=== PATIENT | female | born 1985 | race Two or more races ===

== ENCOUNTER 2024-10-18 11:29 | Outpatient (AMB) | payer MEDICAID, SELFPAY ==
[2024-10-18 11:47] VITALS: BP 120/75; PULSE 83; RESP 16; TEMP 36.4; O2SAT 97; BMI 28.6
--- NOTE | 2024-10-18 11:47 | AMB.OBINITIA ---
Vital Signs 10/18/24 11:47 Height 1.65 m Height Method Stated Weight 78.188 kg Weight Measurement Method Standing Scale BMI 28.6 BP 120/75 Blood Pressure Source Automatic Cuff Blood Pressure Location Left Upper Arm Position Sitting Respiration 16 Pulse 83 Pulse Source Monitor Temp 97.5 F Temp Source Oral Pulse Oximetry (%) 97 Oxygen Delivery Method Room Air Allergies/Home Meds Allergies & Medications Allergies No Known Allergies Allergy (Verified 10/18/24 11:48) Medication Reconciliation ondansetron 4 mg disintegrating tablet 4 mg PO Q8H PRN nausea and vomiting #14 tabs 03/30/24 [Rx Confirmed 10/18/24] Intake Visit Data Collection New Patient or Established: Established Patient (seen at [facility] within 3 years) Reason for Visit:: CARE Seen by Clinical Staff ONLY (RN/MA): No Sampler Pickup Required: No Do You Feel Safe at Home: Yes Authorities Contacted: N/A PCP or OBGYN visit in last 3 months: No Hx Now: Yes Are you currently on any form of Control: Yes Pain Present Currently: No Pain Scale Used: Blevins-Gonzalez/Numerical Pain scale:: 0 Smoking Status Smoking Status: Never smoker Questionnaires Covid-19 Vaccine Questionnaire Has patient been vacinated for Covid-19 Have you been vacinated for Covid-19: Yes PHQ-9 PHQ-2 Over the last 2 weeks, how often have you been bothered by any of the following problems? 1. Little interest or pleasure in doing things: not at all 2. Feeling down, depressed, or hopeless: not at all Total score: 0 PHQ-9 3. Trouble falling or staying asleep, or sleeping too much: Not at all 4. Feeling tired or having little energy: Not at all 5. Poor appetite or overeating: Not at all 6. Feeling bad about yourself - or that you are a failure or have let yourself or your family down: Not at all 7. Trouble concentrating on things, such as reading the newspaper or watching television: Not at all 8. Moving or speaking so slowly that other people could have noticed? - Or the opposite - being so fidgety or restless that you have been moving around a lot more than usual: not at all 9. Thoughts that you would be better off or of hurting yourself in some way: Not at all Total score: 0 Source: Developed by Drs. Brenden Davis, Della Lau, Alessio Barrett and colleagues, with an educational zenaida from [email or web address]. Depression screen completed yes Social History Living Situation History Marital Status: Lives With: Family Housing: Apartment Tobacco History Smoking Status: Never smoker Second Hand Smoke Exposure: No Alcohol History Alcohol Intake: Never Domestic Abuse History Do You Feel Safe at Home: Yes Past Medical History Past Medical History Have you ever been diagnosed with any of the following: Neurological Problems Parkinson's Disease: Yes Cardiology Problems Congestive Heart Failure: No Respiratory Problems Chronic Obstructive Pulmonary Disease (COPD): No Stomache/Intestinal Problems Hepatitis: No Colorectal Cancer: No Genital/Urinary Problems Renal Disease: No Reproductive Problems Breast Cancer: Yes Pelvic Inflammatory Disease: No Previous Pregnancies: Yes (X5 INCLUDING 1 SAB) Musculoskeletal Problems Bone Cancer: No Endocrine Problems Diabetes Mellitus Type 1: No Diabetes Mellitus Type 2: No Other Problems Hospitalization: No Down Syndrome: No Developmental Delay: No Shingles: No Falls: No Blood Transfusions: No Blood Transfusion Reaction: No Anesthesia Reactions: No Organ Transplant: No Chemotherapy: No Radiation Therapy: No Hyperbaric Therapy: No MRSA: No VRSA: No Vancomycin-Resistant Enterococci: No Human Immunodeficiency Virus (HIV): No Chicken Pox: No Measles: No Mumps: No Rubella (Faroese Measles): No Pertussis: No Clostridium Difficile: No Cervical Cancer: No Lung Cancer: No Ovarian Cancer: No History of Present Illness HPI Narrative 39-year-old 7 para 5 that comes to [facility] OB clinic for transfer of care. [email or web address] for [facility]. Patient's first visit was at 13 weeks. Patient has a history of irregular menses. Her last period was February 01, 2024. Based on first ultrasound at 13 weeks in office patient's due date is November 19, 2024. Denies chronic illness. Denies social habits. Denies surgeries. Patient wants a tubal ligation. History of hemorrhage with her last . Patient is O+, antibody screen negative, RPR nonreactive, rubella immune, hepatitis B negative, hep C negative, HIV negative, GC and Chlamydia were negative. Patient did not do her GTT. NIPT and screening tests are negative. Last visit with maternal- medicine was on October 17. Patient has a follow-up ultrasound October 24, 2024. Reports positive movement. Denies signs symptoms of labor. Denies leaking or bleeding at this time OB Initial Visit OB Flowsheet OB Flowsheet Initial Weight: Not Recorded Date <del>?</del> EGA Weight Edema CTX Effacement BP Fundal ht Pres Dilation Effacement Station Visit Note Alb Glu FHR Mov 10/18/24 <del>?</del> 36w 2d 78.188 kg absent absent 120/75 cephalic 7 para 5 comes for her first visit for OB I today. Patient transferred from [facility] with records. I will call for her ultrasound results from [facility]. Patient advised to get hemoglobin A1c today. GBS was done today. Reports good movement. Denies signs symptoms of labor. Patient is O+, antibody screen negative, RPR nonreactive, rubella immune, hepatitis B negative,, hepatitis C negative, HIV negative, GC and Chlamydia were negative. NIPT and carrier screens negative. rtc 1 week obc and schedule with OB for tubal consent. [facility] bid 7 para 5 comes for her first visit for OB I today. Patient transferred from [facility] with records. I will call for her ultrasound results from [facility]. Patient advised to get hemoglobin A1c today. GBS was done today. Reports good movement. Denies signs symptoms of labor. Patient is O+, antibody screen negative, RPR nonreactive, rubella immune, hepatitis B negative,, hepatitis C negative, HIV negative, GC and Chlamydia were negative. NIPT and carrier screens negative. rtc 1 week obc and schedule with OB for tubal consent. [facility] bid. review of [facility] sono for 10/03, EFW was overall 19%, AC: 8th%, [facility] recommends nst/bpp weekly and patient has doppler scheduled in 1 week. 145 active Menstrual History Menstrual reliability: definite Flow: normal Menstrual regularity: irregular Monthly: No Age at menarche: 16 On control pills at conception: No Associated symptoms (LMP): Reports fatigue OB History : 7 Para: 5 Hx # Pregnancies: 0 Hx Total # of Abortions (Spontaneous & Elective): 1 # of Living Children: 5 Delivery History 1st : Child's name: les date: 07/15/05 sex: male Gestational age at delivery (weeks): 42 Delivery type: vaginal weight (lbs): 3175.147 g Delivery complications: none History of depression before or after : No 2nd : Child's name: Samuel date: 09/28/07 sex: male Gestational age at delivery (weeks): 41 Delivery type: vaginal Delivery complications: none, 7-11 History of depression before or after : No 3rd : Child's name: jesi date: 11/01/10 sex: male Gestational age at delivery (weeks): 41 Delivery type: vaginal Delivery complications: 6-4, no problem History of depression before or after : No 4th : Child's name: selene date: 10/13/15 sex: male Gestational age at delivery (weeks): 41 Delivery complications: none. 7-12 History of depression before or after : No 5th : Child's name: candida date: 10/17/17 sex: female Gestational age at delivery (weeks): 41 Delivery complications: none, 8-14 History of depression before or after : No Infection History & Risk Evaluation History of STDs: none Patient or partner has history of Genital Herpes: No Genetic Screening & History Genetic Screening/Teratology Counseling - Includes patient, baby's father, or anyone in either family with: 1. Patient's age 35 years or older as of estimated date of delivery: Yes 2. Thalassemia (Scottish, Austrian, Mediterranean, or Background); MCV less than 80: No 3. Neural Tube Defect (Meningomyelocele, Spina Bifida, or Anencephaly): No 4. Congenital Heart Defect: No 5. Down Syndrome: No 6. Jamin-Sachs (Ashkenazi Zoroastrian, Cajun, Arabic [place]): No 7. Florina Disease (Ashkenazi Zoroastrian): No 8. Familial Dysautonomia (Ashkenazi Zoroastrian): No 9. Sickle Cell Disease or Trait (): No 10. Hemophilia or other blood disorders: No 11. Muscular Dystrophy: No 12. Cystic Fibrosis: No 13. [place]'s Chorea: No 14. Mental Retardation/Autism: No 15. Other inherited genetic or chromosomal disorder: No 16. Maternal Metabolic Disorder (EG,TYPE 1 Diabetes, PKU): No 17. Patient or baby's father had a child with defects not listed above: No 18. Recurrent loss or a stillbirth: No 19. Medications (including supplements, vitamins, herbs or otc drugs)/illicit/recreational drugs/alcohol since last menstrual period: No 20. Any other: No Infection History 1. Live with someone with TB or exposed to TB: No 2. Rash or viral illness since last menstrual period: No 3. Hepatitis B,C: No Other (see comments) Source: [employer] Review of Systems Review of Systems Systems Reviewed: All systems reviewed, normal except as documented Constitutional Constitutional: Reports fatigue Endocrine Endocrine: Reports fatigue Exam General Limitations: no limitations General Appearance: alert, in no apparent distress, comfortable, cooperative, healthy appearing, well developed and well groomed Head Head exam: atraumatic, normocephalic and normal inspection Chest Chest inspection: Present normal inspection and symmetric chest wall rise Resp Respiratory exam: Present normal lung sounds bilaterally Card Cardiovascular exam: Present regular rate, normal rhythm and normal heart sounds Abdominal Abdominal exam: Present soft (fh: 35, FHT 148) and normal bowel sounds Speculum exam: Present normal speculum exam Psych Psychiatric exam: Present normal affect and normal mood Assessment & Plan Diagnosis / Problem List (1) Elderly multigravida in third trimester: Status: Acute (2) Grand multipara in labor in third trimester: Status: Acute (3) Adolescent multigravida 16 years of age or older in third trimester: Status: Acute Plan schedule for A1c today. f/u with MFM 10/27, GBS today. discuss [facility] bid, labor precaution reviewed with patient. f/u with OB for BTL consult. RTC 1 week. call [facility] for sono results Additional Plan Follow Up: 1 Week (RTC 1 week OBC/BTL consult) Office Procedures OB Clinic LOC & Office Proc's Nursing/Assessment Patient Status: Established Patient OB Clinic Nursing Assessment: Medication Reconciliation, Update PMH in EMR and Vital Signs OB Clinic Coordination of Care: Complex Care and Chronic Disease 1-5, Consent,records obtained, informed consent, Education Simp Pt/Fam, Lab and Imaging orders and Staff clarify orders Special Needs: Heart tones Miscellaneous Interventions: Culture Specimen Collection Established Patient Charge Established Patient Point Assignment: 145 Established Patient Point Charge: EP Level 4 ([id number])
== END 2024-10-18 12:11 | disposition home or self-care (01) ==
LOC: HODSOBC 11:29
PROVIDERS: Supervising Provider Obstetrics & Gynecology; Visit Provider Advanced Practice Midwife
DX: O09.523 Supervision of elderly multigravida, third trimester (principal); Z3A.36 36 weeks gestation of pregnancy
CPT/HCPCS: 99214; G0463

== ENCOUNTER 2024-10-24 20:17 | Inpatient (IN) | payer MEDICAID, SELFPAY ==
[2024-10-24] VITALS (36 sets, daily range): BP systolic 107; BP diastolic 70; PULSE 70–94; RESP 18; TEMP 36.6; O2SAT 97–100; BMI 28.8
--- NOTE | 2024-10-24 21:06 | XR_ITS ---
Examination: age Limited Technique: Limited transabdominal sonographic images pelvis Exam date and time: October 24, 2024 at 9:55 PM Indications: Pelvic contractions today, unknown presentation. Findings: Viable intrauterine gestation cephalic presentation spine maternal right Cardiac motion 155 BPM Impression: Viable intrauterine gestation cephalic presentation
[2024-10-24] MEDS: RINGERS LACTATED 1000 ML 1,000 ML 100 ML IV (21:20)
[2024-10-24 22:35] LABS: Basophils % (Auto) 0 % (0-2.5); Eosinophils % (Auto) 0 % (0-10); Hematocrit 29.4 % (36.0-46.0); Hemoglobin 10.4 g/dL (12.0-16.0); Immature Granulocytes % (Auto) 1 % (0-0); Immature Granulocytes Auto 0.11 Thou/mm3 (0.00-0.00); Lymphocytes # (Auto) 1.9 Thou/mm3 (1.0-4.8); Lymphocytes % (Auto) 18 % (10-50); Mean Corpuscular HGB Conc 35.4 g/dl (31.0-37.0); Mean Corpuscular Hemoglobin 32.4 pg (25.0-35.0); Mean Corpuscular Volume 92 fL (80-100); Monocytes # (Auto) 0.6 Thou/mm3 (0.0-0.8); Monocytes % (Auto) 6 % (0-12); Neutrophils # (Auto) 7.6 Thou/mm3 (1.8-7.7); Neutrophils % (Auto) 74 % (37-80); Nucleated Red Blood Cell % 0 /100 WBC (0); Platelet Count 262 Thou/mm3 (140-440); Red Blood Count 3.21 Miln/mm3 (4.00-5.20); White Blood Count 10.3 Thou/mm3 (3.6-11.0)
[2024-10-24 23:45] LABS: Syphilis Nonreactive (Nonreactive)
[2024-10-24] MEDS: DINOPROSTONE 10 MG VAG.SUPP VAGINAL (23:47)
[2024-10-25] VITALS (141 sets, daily range): BP systolic 96–133; BP diastolic 54–85; PULSE 66–98; RESP 17–18; TEMP 36.6–37; O2SAT 94–100
[2024-10-25] MEDS: RINGERS LACTATED 1000 ML 1,000 ML 100 ML IV ×4 (01:19→19:26)
--- NOTE | 2024-10-25 08:59 | ESHP_ITS ---
Documentation for date of: 10/25/24 OB Labor/Induct. HPI History of Present Illness Chief complaint: induction, IUFR : 7 Para: 5 Term pregnancies: 5 pregnancies: 0 Living children: 5 History of Abortions: Spontaneous and Elective: 1 History of Vaginal deliveries: 5 History of sections: No History of : No Date of last menstrual period: 02/07/24 RAJIV: 11/13/24 Gestational Age (weeks): 37 Gestational Age (days): 1 Gestational age based on last menstrual period: 37 History of present illness: 39-year-old 7 para 5 admit to labor and delivery for induction of labor from her MFM appointment. Patient had been seen weekly MFM and Dopplers for growth restriction. The baby a week ago was measured in the 8th percentile. This week the baby is measuring in the 3rd percentile and oligohydramnios. The SHERRI was 3.5 so patient was a direct admit. Denies social habits. Denies surgery. Denies chronic illness. 1 hour GTT was normal. Patient is O+, antibody screen negative, RPR nonreactive, rubella immune, hepatitis B negative, hep C negative, GC and Chlamydia were negative. Patient had a negative AFP, negative NIPT and carrier screens were all negative. And GBS negative. History of Present Dating criteria: LMP confirmed by 1st trimester US Adequate Care: Yes Ultrasounds: normal 1st trimester US and normal mid trimester US Obstetrical complications: growth restriction Medical complications: none Review of Systems Review of Systems Systems Reviewed: All systems reviewed, normal except as documented Past Medical History Surgical History SURGICAL: Negative Section Meds Home Medications and Allergies Allergies Allergy/AdvReac Type Severity Reaction Status Date / Time No Known Allergies Allergy Verified 10/18/24 11:48 OB Exam Physical Exam Vital signs: Temp Pulse Resp BP Pulse Ox O2 Del Method 98.6 F 81 18 106/67 98 Room Air 10/25/24 07:02 10/25/24 08:14 10/25/24 07:06 10/25/24 08:14 10/24/24 23:35 10/25/24 00:00 Narrative: Alert and oriented. Normal heart rate and rhythm. Lungs clear no wheezes. Gravid abdomen. Gynecoid pelvis. Estimated weight 5-1/2 pounds. Vaginal examination was long closed posterior and firm. Vertex by ultrasound. heart rate category 1 with accelerations and moderate variability and occasional contractions Routine Cardiovascular Exam Cardiovascular: Present RRR Routine Abdominal Exam Abdominal: Present soft Detailed Labor and Delivery Exam Dilation (cm): closed Effacement (%): thick Cervix position: posterior station: -3 Consistency: medium Presentation: Vertex Cervical ripeness score: 2 Membranes: intact Baseline heart rate: 155 monitor accelerations: 15x15 monitor decelerations: None jail variability: Moderate (11-25) Contraction frequency (min): occ Tachysystole: No Contraction intensity: Mild OB Results Labs 10/24/24 21:00 Labs: Short CBC 10/24/24 Range/Units 21:00 WBC 10.3 (3.6-11.0) Thou/mm3 Hgb 10.4 L (12.0-16.0) g/dL Hct 29.4 L (36.0-46.0) % Plt Count 262 (140-440) Thou/mm3 OB Assessment & Plan Assessment and Plan (1) Intrauterine growth restriction (IUGR) affecting care of mother: Status: Acute Additional Plan Induction method: per misoprostol protocol Plan: induction, anticipate NVD and consult MD haywood
[2024-10-25] MEDS: MISOPROSTOL 50 mCg TABLET PO (15:44)
--- NOTE | 2024-10-25 16:41 | PD.LDPN ---
Documentation for date of: 10/25/24 OB Labor Progress Note Pain Control Comments: None Pelvic Exam Dilation (cm): closed Effacement (%): thick station: -3 Amniotic membrane status: Intact Contractions Contraction frequency: q 3 min Contraction intensity: Mild Status status: Category l Assessment and Plan Comments: IUP 37w1d FGR Cerivical ripening on going : Received Cervidil x 12 hours then Cytotec 50mcg orally Currently Category 1 Tracing Note: Patient experienced a prolonged decel lasting 5 minutes beginning at 15:56 due to tachysystole within 30 minutes of receiving her first dose of Cytotec orally. Intrauterine resuscitation measures were implemented. The tachysystole resolved and heart pattern improved and at 16:20 we currently have a Category 1 tracing without tachysystole. Recommend continuous monitoring for two hours after cytotec dosing.
--- NOTE | 2024-10-25 17:35 | PD.LDPN ---
Documentation for date of: 10/25/24 OB Labor Progress Note Pain Control Pain control: tolerating well Pelvic Exam Dilation (cm): 1 Effacement (%): 50 station: -2 Amniotic membrane status: Intact Contractions Monitor mode: External Contraction frequency: q 3 min Contraction duration: mild Contraction phase: Resting Contraction intensity: Mild Status status: Category l Assessment and Plan Assessment: induction ongoing Plan OB labor note: continuous present management (prolonged decel after 1st dose of cytotec, heart rate recovered, now accels with moderate variability) CNM Management MD Consulted (describe details below): Yes
[2024-10-25] MEDS: ONDANSETRON INJ 2 MG/ML INJ 2 ML 4 MG IV (19:26)
[2024-10-25] MEDS: OXYTOCIN in NS 30 units 30 UNIT/500 ML BAG IV (20:45)
[2024-10-26] VITALS (121 sets, daily range): BP systolic 102–129; BP diastolic 62–83; PULSE 63–92; RESP 17–18; TEMP 36.6–36.7; O2SAT 92–100
[2024-10-26] MEDS: RINGERS LACTATED 1000 ML 1,000 ML 100 ML IV (01:59)
[2024-10-26] MEDS: PROMETHAZINE INJ 25 MG/ML VIAL 12.5 MG IM (02:15)
[2024-10-26] MEDS: MEPERIDINE INJ 50 MG/ML VIAL IM (02:15)
[2024-10-26] MEDS: fentaNYL CIT INJ 50 mCg/ML AMP 2ML 100 MCG IV (06:22)
[2024-10-26] MEDS: OXYTOCIN in NS 20 units 20 UNIT/1,000 ML BAG 125 UNIT IV (08:02)
[2024-10-26] MEDS: OXYTOCIN INJ 10 UNIT/ML VIAL IM (08:03)
[2024-10-26] MEDS: MISOPROSTOL 200 mCg TABLET 800 MCG PR (08:03)
[2024-10-26] MEDS: TRANEXAMIC ACID 1,000 MG IVPB 1,000 MG/100 ML BAG 200 MG IV ×2 (08:03→09:42)
[2024-10-26] MEDS: LIDOCAINE HCL 1% 20 ML VIAL INFL (08:03)
[2024-10-26] MEDS: IBUPROFEN TAB 400 MG TABLET 800 MG PO (08:04)
--- NOTE | 2024-10-26 08:11 | PD.LDDELS ---
Data ([place]) Data Hx Section: No : 7 Para: 0 Term: 5 : 0 : 0 Delivery Data ([place]) Labor Data Stimulated/Augmented: Yes Induction: Yes Method: Cervidil (cytotec x1, pitocin to follow) ROM Date: 10/26/24 ROM Time: 07:40 Rupture Type: SROM Amniotic Fluid: Clear Delivery Data EDC: 11/13/24 EDC calculated by:: LMP/early US confirmation Labor Onset Stage 1 Date: 10/26/24 Labor Onset Stage 1 Time: 06:22 Labor Onset Stage 2 Date: 10/26/24 Labor Onset Stage 2 Time: 07:39 Delivery Date: 10/26/24 Delivery Time: 07:40 Placenta Delivery Date: 10/26/24 Placenta Delivery Time: 07:49 Delivered by: Ariela Durant Delivery nurse: Za Sue [employer] Supervisor at delivery: Jaylene (fob and sister) Other staff at delivery: 2nd Nurse Other staff at delivery: 2nd Nurse Other staff at delivery: Miriam Cohen Other staff at delivery: Chanda Domínguez Delivery Method Delivery: Vaginal Delivery Type: Spontaneous Presentation: Vertex Position: OA Anesthesia Type Primary Anesthesia: Local Secondary Anesthesia: None Delivery Room Medications Intrapartum Medications: Narcotics and Tocolytics Other Intrapartum Medications: No Post Delivery Medications: Tocolytics (pitocin 10 IM, TXA x2) and Cytotec Post Delivery Medications N/A: No Placenta Placenta Delivery: Spontaneous (delivered intact, inspected) Placenta Cultures Obtained: No Placenta Sent for Examination: No Cord Sample: Cord Blood Obtained Episiotomy Episiotomy: None Lacerations #1: Labial: labial bilateral Perineal repair Sutures used for repair: 3.0 Vicryl EBL Estimated blood loss (ml): 400 Umbilical Cord Umbilical Vessels: 3 Nuchal Cord: None Body Cord: None [place] Data ([place]) Data Gender: Male Infant Weight Grams: 2715 1 Minute Total: 9 5 Minute Total: 9
--- NOTE | 2024-10-26 08:49 | PC.NURSE ---
10/26/24 0849: Called CHANA Durant for orders for zofran per protocol for pt. experiencing nausea. Orders received.
[2024-10-26] MEDS: DOCUSATE SOD 100 MG CAPSULE PO (08:55)
[2024-10-26] MEDS: ONDANSETRON INJ 2 MG/ML INJ 2 ML 4 MG IV (08:56)
[2024-10-26 16:59] LABS: Basophils % (Auto) 0 % (0-2.5); Eosinophils # (Auto) 0.1 Thou/mm3 (0.0-0.5); Eosinophils % (Auto) 0 % (0-10); Hematocrit 28.6 % (36.0-46.0); Immature Granulocytes % (Auto) 1 % (0-0); Lymphocytes # (Auto) 1.9 Thou/mm3 (1.0-4.8); Lymphocytes % (Auto) 11 % (10-50); Mean Corpuscular Hemoglobin 32.9 pg (25.0-35.0); Mean Corpuscular Volume 94 fL (80-100); Monocytes % (Auto) 6 % (0-12); Neutrophils # (Auto) 13.3 Thou/mm3 (1.8-7.7); Neutrophils % (Auto) 82 % (37-80); Nucleated Red Blood Cell % 0 /100 WBC (0); Platelet Count 224 Thou/mm3 (140-440); RDW Standard Deviation 47.7 fL (36.4-46.3); Red Blood Count 3.04 Miln/mm3 (4.00-5.20); White Blood Count 16.3 Thou/mm3 (3.6-11.0)
[2024-10-27] MEDS: IBUPROFEN TAB 400 MG TABLET 800 MG PO (04:38)
[2024-10-27 04:45] VITALS: BP 109/71; PULSE 74; RESP 16; TEMP 36.3; O2SAT 97
[2024-10-27 08:00] VITALS: BP 104/67; PULSE 71; RESP 17; TEMP 36.6; O2SAT 97
[2024-10-27] MEDS: DOCUSATE SOD 100 MG CAPSULE PO (09:05)
--- NOTE | 2024-10-27 09:23 | PD.LDPPPRG ---
Subjective Subjective Interval history: No complaints of pain. No dizziness. Bonding and breast-feeding Exam Vital Signs Temp Pulse Resp BP Pulse Ox O2 Del Method 97.9 F 71 17 104/67 97 Room Air 10/27/24 08:00 10/27/24 08:00 10/27/24 08:00 10/27/24 08:00 10/27/24 08:00 10/27/24 08:00 Narrative Exam Vital signs stable afebrile. Pressure soft. Fundus firm below the umbilicus. Uterus well involuted. Abdomen soft. Negative Homans' sign. 2+ DTRs. Perineum intact no swelling. Small lochia Objective Labs 10/26/24 15:58 Labs: Laboratory Results - last 24 hr 10/26/24 15:58 WBC 16.3 H D RBC 3.04 L Hgb 10.0 L Hct 28.6 L MCV 94 MCH 32.9 MCHC 35.0 RDW Std Deviation 47.7 H Plt Count 224 D Neut % (Auto) 82 H Lymph % (Auto) 11 [place] % (Auto) 6 Eos % (Auto) 0 Baso % (Auto) 0 Neut # (Auto) 13.3 H Lymph # (Auto) 1.9 [place] # (Auto) 1.0 H Eos # (Auto) 0.1 Baso # (Auto) 0.0 Immature Gran # (Auto) 0.10 H Absolute Nucleated RBC 0.00 Immature Gran % 1 H Nucleated RBC % 0 Assessment & Plan Problem List (1) Intrauterine growth restriction (IUGR) affecting care of mother: Status: Acute Assessment Comment Assessment comment: 24 ht pp Plan Comment Plan Comment: Discharge home with baby today. Continue vitamins and iron. Tylenol ibuprofen for pain. Discussed danger signs and symptoms. Discussed laceration care. Comfort measures peribottle and Dermoplast as needed. Discussed ER precautions and parameters. And discussed signs and symptoms of infection. Return in 3 weeks visit Time Spent With Patient Time: Total time spent is greater than 50% in coordination of care (as documented) at patient's floor/unit and/or counseling patient:
--- NOTE | 2024-10-27 09:25 | PD.LDDS ---
DS: Providers Provider Date of admission: 10/24/24 20:17 Primary care physician: Physician No Primary/Family Admitting Provider: Giovanny Rosenberg MD Attending Provider on Admission: Bob Hansen MD Consults: 10/26/24 08:22 Referral Routine Comment: Attending Provider on DC: Ariela Durant CNM Discharging Provider: Ariela Durant CNM DS: Diagnosis Problem List Completed Was Problem List Reviewed/Reconciled?: Yes Summary/Hosp Course Brief History: 39-year-old 7 para 5 admit to labor and delivery for induction of labor from her MFM appointment. Patient had been seen weekly MFM and Dopplers for growth restriction. The baby a week ago was measured in the 8th percentile. This week the baby is measuring in the 3rd percentile and oligohydramnios. The SHERRI was 3.5 so patient was a direct admit. Denies social habits. Denies surgery. Denies chronic illness. 1 hour GTT was normal. Patient is O+, antibody screen negative, RPR nonreactive, rubella immune, hepatitis B negative, hep C negative, GC and Chlamydia were negative. Patient had a negative AFP, negative NIPT and carrier screens were all negative. And GBS negative. Peripartum Data Delivery Method: Normal Vaginal Delivery Episiotomy Description: None Laceration Description: yes (biatera labia) Time Spent with Patient Time attestation: Total time spent providing and/or coordinating discharge services: Exam Vital Signs Temp Pulse Resp BP Pulse Ox O2 Del Method 97.9 F 71 17 104/67 97 Room Air 10/27/24 08:00 10/27/24 08:00 10/27/24 08:00 10/27/24 08:00 10/27/24 08:00 10/27/24 08:00 Discharge Plan Plan Patient Disposition: HOME (Self Care) Patient condition on transfer: Stable Prescriptions/Referrals Prescriptions/Med Rec: No Action ondansetron 4 mg tablet,disintegrating 4 mg PO Q8H PRN (Reason: nausea and vomiting) Qty: 14 0RF Referrals: No Primary/Family,Physician [Primary Care Provider] - Patient/Caregiver Discharge Instructions Discharge Activity: resume usual activities Print Language: Upper Sorbian Activity Restrictions/Additional Instructions: Discharge home with baby. Continue vitamins and iron. Tylenol or ibuprofen for pain. Discussed comfort measures for her labial lacerations. Discussed ER precautions and parameters. Discussed signs and symptoms of infection. Increase rest. Increase fluids. Return in 3 weeks visit Stand Alone Forms: Lynn Award Info., Patient Portal Info Letter Discharge Order Discharge Orders: Discharge (Routine); Ordered 10/27/24 Ordered By: Ariela Durant Planned Discharge Date 10/27/24
== END 2024-10-27 13:55 | disposition home or self-care (01) | DRG 560 ==
LOC: S4SX 10-25 16:41 → S4NX 10-26 10:28
PROVIDERS: Advanced Practice Midwife; Admitting Provider Obstetrics & Gynecology; Visit Provider Specialist
DX: O36.5930 Maternal care for other known or suspected poor fetal growth, third trimester, not applicable or unspecified (principal); Z37.0 Single live birth; Z3A.37 37 weeks gestation of pregnancy; O76 Abnormality in fetal heart rate and rhythm complicating labor and delivery; O70.0 First degree perineal laceration during delivery
CPT/HCPCS: 36415; 76815; 85025; 86780; 86850; 86900; 86901; 86923; J2175; J2405; J2550; J2590; J3010; J3490; J7120; S0191; A9270

== ENCOUNTER 2025-07-01 19:16 | Emergency (ER) | payer MEDICAID, SELFPAY ==
[2025-07-01 19:17] VITALS: BMI 24.6
[2025-07-01 19:52] VITALS: BP 129/88; PULSE 96; RESP 18; TEMP 36.8; O2SAT 100
--- NOTE | 2025-07-01 19:56 | XR_ITS ---
Examination: Complete OB ultrasound, less than 14 weeks, transabdominal Date and time of exam: July 01, 2025, 10:10 p.m. INDICATIONS: pill April 27, 2025 vaginal bleeding and pelvic pain with clots today Technique: Obstetrical ultrasound images less than 14 weeks performed via transabdominal imaging Findings: Multiple vesicular type lesions in the endometrium, consider molar No recognizable gestational sac or pole Mild free fluid in the cul-de-sac Right ovary 2.9 cm arterial flow Left ovary 1.9 cm arterial flow IMPRESSION: Suspicious for molar , recommend transvaginal pelvic sonography follow-up
--- NOTE | 2025-07-01 19:56 | PD.EDRME ---
Rapid Medical Screening Exam RME Arrival date/time: 07/01/25 19:16 This is a case of 40-year-old female who came into the emergency room due to heavy vaginal bleeding patient states that she found out that she is last April and took pills patient is fine until today patient had heavy vaginal bleeding with blood clots thus decided to sought consult here in the emergency room Chief Complaint: Vaginal Bleeding Time Seen by Provider: 07/01/25 19:23 Vital signs: Vital Signs Temperature 98.2 F 07/01/25 19:52 Pulse Rate 96 07/01/25 19:52 Respiratory Rate 18 07/01/25 19:52 Blood Pressure 129/88 H 07/01/25 19:52 Pulse Oximetry (%) 100 07/01/25 19:52 Oxygen Delivery Method Room Air 07/01/25 19:52 Exam: Moderate tenderness suprapubic area no guarding no rebound no rigidity Clinical Impression: Abnormal vaginal bleeding
[2025-07-01 20:32] LABS: Collection Type, Urine Voided
[2025-07-01 20:34] LABS: Basophils # (Auto) 0.1 Thou/mm3 (0.0-0.2); Basophils % (Auto) 1 % (0-2.5); Eosinophils # (Auto) 0.0 Thou/mm3 (0.0-0.5); Eosinophils % (Auto) 0 % (0-10); Hematocrit 37.3 % (36.0-46.0); Hemoglobin 12.6 g/dL (12.0-16.0); Immature Granulocytes Auto 0.06 Thou/mm3 (0.00-0.00); Lymphocytes # (Auto) 1.5 Thou/mm3 (1.0-4.8); Lymphocytes % (Auto) 14 % (10-50); Mean Corpuscular HGB Conc 33.8 g/dl (31.0-37.0); Mean Corpuscular Hemoglobin 31.6 pg (25.0-35.0); Mean Corpuscular Volume 94 fL (80-100); Monocytes # (Auto) 0.7 Thou/mm3 (0.0-0.8); Monocytes % (Auto) 7 % (0-12); Neutrophils # (Auto) 7.9 Thou/mm3 (1.8-7.7); Neutrophils % (Auto) 78 % (37-80); Nucleated Red Blood Cell # 0.00 Thou/mm3 (0.00-0.00); Nucleated Red Blood Cell % 0 /100 WBC (0); Platelet Count 323 Thou/mm3 (140-440); RDW Standard Deviation 44.6 fL (36.4-46.3); Red Blood Count 3.99 Miln/mm3 (4.00-5.20); White Blood Count 10.2 Thou/mm3 (3.6-11.0)
[2025-07-01 20:40] LABS: Bilirubin,Urine Negative (Negative); Blood,Urine 3+ (Negative); Clarity,Urine Turbid (Clear/Hazy); Color,Urine Yellow (Lt Yel-Yel); Glucose, Urine Negative (Negative); Ketones,Urine 1+ (Negative); Leukocyte Esterase,Urine Negative (Negative); Nitrite,Urine Negative (Negative); PH,Urine 6.5 (5.0-7.0); Protein,Urine 1+ (Neg - Trace); RBC,Urine 413 /hpf (0-3); Specific Gravity,Urine 1.032 (1.001-1.035); Squamous Epithelial Cell,Urine 2 /hpf (0-5); Urobilinogen,Urine 3.0 mg/dL (0.0-1.0); WBC,Urine 1 /hpf (0-5)
[2025-07-01 20:56] LABS: Alanine Aminotransferase 18 U/L (10-49); Albumin, Serum 4.6 gm/dL (3.5-5.0); Albumin/Globulin Ratio 1.7 (1.2-2.2); Alkaline Phosphatase 77 U/L (46-116); Anion Gap 8 (7-16); Aspartate Amino Transferase 23 U/L (0-34); BUN/Creatinine Ratio 18 Ratio (12-20); Beta HCG,Quantitative 19 mIU/mL (<5.0); Bilirubin,Total 0.4 mg/dL (0.3-1.2); Blood Urea Nitrogen 11 mg/dL (9-23); Calcium 9.2 mg/dL (8.3-10.6); Calcium (Corrected) 9.2 mg/dL (8.5-10.1); Carbon Dioxide 27.6 mMol/L (20.0-31.0); Chloride 106 mMol/L (98-107); Creatinine (Component) 0.6 mg/dL (0.6-1.3); Estimated Creatinine Clearance 114.4 mL/min (>60); Globulin 2.7 gm/dL (2.3-3.5); Glucose 90 mg/dL (74-106); Osmolality,Calculated 282 (275-295); Potassium 4.3 mMol/L (3.4-5.1); Sodium 142 mMol/L (136-145); Total Protein 7.3 gm/dL (5.7-8.2); eGFR > 60 See Note
== END 2025-07-02 01:47 | disposition left against medical advice (07) ==
PROVIDERS: Nurse Practitioner Family; Emergency Provider Emergency Medicine; PCP Family Medicine
DX: N93.9 Abnormal uterine and vaginal bleeding, unspecified (principal); Z53.29 Procedure and treatment not carried out because of patient's decision for other reasons
CPT/HCPCS: 36415; 76801; 80053; 81001; 84702; 85025; 86900; 86901; 99283